=== PATIENT | male | born 1960 | race Caucasian/White ===

== ENCOUNTER 2020-02-15 08:10 | Day surgery (SDC) | payer MEDICARE ==
--- NOTE | 2020-02-15 08:03 | HP ---
DATE OF SURGERY: 02/15/2020 HISTORY OF PRESENT ILLNESS: The patient is a 60 year old with no prior colonoscopy, spots of blood in the past but not regular bloody stools. Family history negative for colon cancer. He had abdominal pain. He did have positive Cologuard in the past. PAST MEDICAL HISTORY: Hypertension, COPD. Arthritis. He had tendon problem in the past. PAST SURGICAL HISTORY: Hernia repair in the past. MEDICATIONS: Metoprolol, omeprazole. ALLERGIES: PENICILLIN. FAMILY HISTORY: Heart disease. SOCIAL HISTORY: Half pack per day smoker. He drinks alcohol once a month denies alcohol abuse. REVIEW OF SYSTEMS: Fourteen systems reviewed per admission assessment. No chest pain or palpitations. Other systems negative or noncontributory as above and per preadmission questionnaire. PHYSICAL EXAMINATION: GENERAL: No acute distress. HEENT: Sclerae nonicteric. NECK: No JVD. CHEST: Equal excursion, nonlabored breathing. CVS: Regular rate and rhythm. ABDOMEN: Soft. No peritoneal signs. EXTREMITIES: No significant edema. NEURO: Alert, oriented, moving extremities grossly symmetrically. RECTAL: Deferred timed to endoscopy exam. IMPRESSION: History of positive Cologuard and no prior colonoscopy. He needs colonoscopy and I feel he is a candidate. Risks and benefits explained in detail but not limited to bleeding or infection, risk of bowel injury or perforation possibly requiring open procedure, risk of missed or nondiagnosis or incomplete exam possibly requiring barium enema, other studies or procedures, general risk of anesthesia or sedation, risk of bowel prep but not limited to, will proceed with outpatient colonoscopy under MAC anesthesia.
[2020-02-15] MEDS ORDERED: Lactated Ringers 1,000 ML IV SCH (08:30)
[2020-02-15] MEDS ORDERED: Lactated Ringers 1,000 ML IV ONE ×2 (08:36→12:05)
[2020-02-15] MEDS ORDERED: DIPRIVAN 200 MG/20 ML IV ONE (11:13)
[2020-02-15] MEDS ORDERED: Ketamine HCl 50 MG/ML ONE (11:13)
[2020-02-15 12:35] VITALS: O2SAT 98
[2020-02-15 12:51] VITALS: BP 130/75; PULSE 81
--- NOTE | 2020-02-15 13:59 | OP ---
SURGERY DATE/TIME: 02/15/2020 1115 PREOPERATIVE DIAGNOSIS: Positive Cologuard. No prior colonoscopy. Need for screening colonoscopy. POSTOPERATIVE DIAGNOSES: 1) Large polyp upper rectum, rectosigmoid area about 15 cm. 2) Polyp cecum, ascending colon, transverse colon. 3) Small early polyp or hyperplastic lesion rectum and rectosigmoid colon. 4) Small internal hemorrhoids. 5) Diverticulosis. 6) ASA class III. 7) Fair bowel prep. 8) Withdrawal time 17 minutes. PROCEDURES: 1) Colonoscopy to cecum. 2) Hot biopsy piecemeal removal of cecal polyp. 3) Hot snare polypectomy ascending colon polyp. 4) Hot snare polypectomy proximal transverse colon polyp. 5) Hot biopsy small additional proximal transverse colon polyp. 6) Hot snare polypectomy with ink spot tattooing of location of large polyp proximal rectum-rectosigmoid area about a few centimeters. 7) Hot biopsy removal of small early polyp versus hyperplastic lesion rectosigmoid and rectum. SURGEON: Dr. Tank Serrato. ANESTHESIA: MAC. ESTIMATED BLOOD LOSS: Minimal. INDICATIONS: As noted above. Risks and benefits explained in detail but not limited to and consent obtained. DESCRIPTION OF PROCEDURE AND FINDINGS: The patient is taken to the operating room. MAC anesthesia introduced. After official time out and no disagreement with planned procedure, digital rectal exam did not reveal any rectal masses. He did have some small internal hemorrhoids. Video colonoscope inserted and passed up the tortuous sigmoid, descending, transverse and ascending colon. With positioning on his back and two different staff members pushing on his abdomen, the scope was able to reach the cecum. Appendiceal orifice and valve well visualized. Polyp in the cecum removed with hot snare polypectomy. There were little residual pieces removed with hot biopsy forceps and again minimal brief bursts of cautery and appeared to have good hemostasis. Site appeared to be fine. The scope slowly withdrawn. A small polyp in the ascending colon removed with hot snare polypectomy with brief bursts of cautery this was about 3 mm in size. Scope pulled back to the proximal transverse colon. Small polyp in the proximal transverse colon in the hepatic flexure was removed with hot snare polypectomy with brief bursts of cautery. Two additional even smaller polyps about 1.5 mm to 2 mm removed with hot biopsy forceps with brief bursts of cautery. Good hemostasis noted. The scope slowly carefully withdrawn. He did have some diverticulosis mostly in the left colon. Scope pulled back to the rectosigmoid upper part of the rectum. The larger polyp about 1.5 cm and large stalk was removed with hot snare polypectomy with brief bursts of cautery. Ink spot tattooing was used to lionel the location of this site. There was about three small adjacent areas that appeared to be smoother, more hyperplastic appearing removed with hot biopsy forceps with brief bursts of cautery. Good hemostasis noted. Otherwise the scope pulled back down in the rectum and there appeared to be small early polyp versus hyperplastic lesion removed with hot biopsy forceps with brief bursts of cautery. Good hemostasis noted. There were some small internal hemorrhoids. There were no signs of any other large polyps, masses or obstructing lesions. Prep overall was fair. ASA class III. Withdrawal time was about 17 minutes including removal of multiple polyps. Appendiceal orifice and valve area well visualized. There were no major complications. I will see him back in the office next week.
== END 2020-02-15 13:00 | disposition home or self-care (01) ==
LOC: SDC 08:10
PROVIDERS: ATTEND Surgery
DX: Z12.11 Encounter for screening for malignant neoplasm of colon (principal); R19.5 Other fecal abnormalities; K64.8 Other hemorrhoids; K57.30 Diverticulosis of large intestine without perforation or abscess without bleeding; D12.7 Benign neoplasm of rectosigmoid junction; D12.0 Benign neoplasm of cecum; D12.3 Benign neoplasm of transverse colon; I10 Essential (primary) hypertension; J44.9 Chronic obstructive pulmonary disease, unspecified
CPT/HCPCS: 88305; J2704